=== PATIENT | male | born 1940 | race Two or more races ===

== ENCOUNTER 2018-07-28 07:47 | Day surgery (SDC) | payer OTHER, SELFPAY ==
[~2018-07-28] VITALS: Ht 180.3 cm; Wt 81.6 kg
[2018-07-28] VITALS (10 sets, daily range): BP systolic 116–139; BP diastolic 67–76
--- NOTE | 2018-07-28 08:40 | NUR ---
IV LR WAS STARTED BY FELIX NAILS RN. NO S/S OF INFILTRATION.
[2018-07-28] MEDS ORDERED: Vancomycin 1 GM in D5W 275 ML IVPB ONE (08:45)
[2018-07-28] MEDS ORDERED: ceFAZolin sod 1 GM in NS 55 ML IVPB ONE (08:45)
[2018-07-28 08:51] LABS: BASOPHILS % (AUTO) 0.5 % (0.0-2.0); EOSINOPHILS % (AUTO) 1.7 % (0.0-3.0); HEMOGLOBIN 13.7 G/DL (14.2-18.0); LYMPHOCYTES % (AUTO) 28.2 % (20.0-45.0); MEAN CORPUSCULAR VOLUME 87 FL (80-99); MONOCYTES % (AUTO) 7.3 % (1.0-10.0); NEUTROPHILS % (AUTO) 62.3 % (45.0-75.0); PLATELET COUNT 170 K/UL (150-450); RED CELL DISTRIBUTION WIDTH 14.8 % (11.6-14.8); WHITE BLOOD COUNT 5.7 K/UL (4.8-10.8)
[2018-07-28] MEDS ORDERED: Lidocaine 1% MPF 10mg/ml 5ml ONE (08:51)
[2018-07-28] MEDS ORDERED: fentaNYL 100 mcg/2 mL IV ONE (08:51)
[2018-07-28] MEDS ORDERED: Propofol 200mg/20ml IV ONE (08:51)
[2018-07-28] MEDS ORDERED: PROSCAR5 MG ORAL (08:55)
[2018-07-28] MEDS ORDERED: ATORVASTATIN CA10 MG ORAL (08:55)
[2018-07-28] MEDS ORDERED: FLOMAX0.4 MG ORAL (08:55)
[2018-07-28] MEDS ORDERED: ASPIRIN-LOW81 MG ORAL (08:55)
[2018-07-28] MEDS ORDERED: CIALIS5 MG PO (08:55)
[2018-07-28 08:57] LABS: ANION GAP 10 mmol/L (5-15); BLOOD UREA NITROGEN 21 mg/dL (7-18); CALCIUM 8.7 MG/DL (8.5-10.1); CARBON DIOXIDE 24 MMOL/L (21-32); CHLORIDE 109 MMOL/L (98-107); CREATININE 1.7 MG/DL (0.55-1.30); POTASSIUM 4.4 MMOL/L (3.5-5.1); SODIUM 142 MMOL/L (136-145)
--- NOTE | 2018-07-28 09:41 | Pre-Procedure Note/Attestation ---
Pre-Procedure Note/Attestation Complete Prior to Procedure Planned Procedure: not applicable Procedure Narrative: IPP placement Indications for Procedure Pre-Operative Diagnosis: impotence Attestation I attest that I discussed the nature of the procedure; its benefits; risks and complications; and alternatives (and the risks and benefits of such alternatives ), prior to the procedure, with the patient (or the patient's legal marketing development representative). I attest that, if there was a reasonable possibility of needing a blood transfusion, the patient (or the patient's legal marketing development representative) was given the [facility] standardized written summary, pursuant to the Olaf Dani Blood Safety Act ([place] Health and Safety Code # 1645, as amended). I attest that I re-evaluated the patient just prior to the surgery and that there has been no change in the patient's H&P, except as documented below: Barney Montana MD July 28, 2018 09:41
[2018-07-28] MEDS ORDERED: Bacitracin Oint 15gm Tube TOPIC ONE (09:51)
[2018-07-28] MEDS ORDERED: Bacitracin 50000 Units Vial ONE (09:52)
[2018-07-28] MEDS ORDERED: Vancomycin 1gm vial IVPB ONE (09:52)
[2018-07-28] MEDS ORDERED: NeoSporin Gu Irrig 1ml Amp IRRIG ONE (09:52)
[2018-07-28] MEDS ORDERED: LR 1000ml ONE (10:00)
[2018-07-28] MEDS ORDERED: NS Irrig 1000ml ONE (10:00)
[2018-07-28] MEDS ORDERED: Sterile Water Irrig 1000ml IRRIG ONE (10:00)
--- NOTE | 2018-07-28 10:41 | Anethesia Preoperative Eval ---
Anesthesia Pre-op PMH/ROS General Date of Evaluation: July 28, 2018 Time of Evaluation: 09:50 Anesthesiologist: Aleisha ASA Score: ASA 2 Mallampati Score Class I : Soft palate, uvula, fauces, pillars visible Class II: Soft palate, uvula, fauces visible Class III: Soft palate, base of uvula visible Class IV: Only hard plate visible Mallampati Classification: Class II Surgeon: Nan Diagnosis: ED Surgical Procedure: Penile prostesis placement Anesthesia History: none Family History: no anesthesia problems Allergies: Coded Allergies: No Known Allergies (Unverified , 07/28/18) Medications: see eMAR Patient NPO?: Yes Past Medical History Cardiovascular: Reports: HTN - mild Pulmonary: Denies: asthma, COPD, [place], other Gastrointestinal/Genitourinary: Reports: GERD - mild; Denies: CRI, ESRD, other Neurologic/Psychiatric: Denies: dementia, CVA, depression/anxiety, TIA, other Endocrine: Denies: DM, hypothyroidism, steroids, other HEENT: Denies: cataract (L), cataract (R), glaucoma, [place] (L[place] (R), other Hematology/Immune: Denies: anemia, DVT, bleeding disorder, other Musculoskeletal/Integumentary: Reports: OA; Denies: RA, DJD, DDD, edema, other PMH Narrative: as above PSxH Narrative: Rhinoplasty, bilateral cataracts Anesthesia Pre-op Phys. Exam Physician Exam Last Vital Signs Date Time Temp Pulse Resp B/P (MAP) Pulse Ox O2 Delivery O2 Flow Rate FiO2 07/28/18 08:47 Room Air 07/28/18 08:42 97.7 56 20 139/68 96 Constitutional: NAD Neurologic: CN 2-12 intact Cardiovascular: RRR, no M/R/G Respiratory: CTA Gastrointestinal: S/NT/ND Airway Exam Mallampati Score: Class II MO: limited Neck: stiff ROM: limited Teeth: missing Dentures: no upper, no lower Anesthesia Pre-op A/P Labs Hematology Test 07/28/18 08:35 White Blood Count 5.7 K/UL (4.8-10.8) Red Blood Count 4.80 M/UL (4.70-6.10) Hemoglobin 13.7 G/DL (14.2-18.0) L Hematocrit 42.0 % (42.0-52.0) Mean Corpuscular Volume 87 FL (80-99) Mean Corpuscular Hemoglobin 28.5 PG (27.0-31.0) Mean Corpuscular Hemoglobin Concent 32.5 G/DL (32.0-36.0) Red Cell Distribution Width 14.8 % (11.6-14.8) Platelet Count 170 K/UL (150-450) Mean Platelet Volume 5.5 FL (6.5-10.1) L Neutrophils (%) (Auto) 62.3 % (45.0-75.0) Lymphocytes (%) (Auto) 28.2 % (20.0-45.0) Monocytes (%) (Auto) 7.3 % (1.0-10.0) Eosinophils (%) (Auto) 1.7 % (0.0-3.0) Basophils (%) (Auto) 0.5 % (0.0-2.0) Chemistry Test 07/28/18 08:35 Sodium Level 142 MMOL/L (136-145) Potassium Level 4.4 MMOL/L (3.5-5.1) Chloride Level 109 MMOL/L (98-107) H Carbon Dioxide Level 24 MMOL/L (21-32) Anion Gap 10 mmol/L (5-15) Blood Urea Nitrogen 21 mg/dL (7-18) H Creatinine 1.7 MG/DL (0.55-1.30) H Estimat Glomerular Filtration Rate mL/min (>60) Glucose Level 106 MG/DL (74-106) Calcium Level 8.7 MG/DL (8.5-10.1) Studies Pre-op Studies: EKG - SR Risk Assessment & Plan Assessment: ASA 2 Plan: GA with LMA Status Change Before Surgery: No Pre-Antibiotics Drug: Vanco 1gr. Gentamycin 80 mg Given Within 1 Hr of Incision: Yes Time Given: 10:41 Edgardo Moraes MD July 28, 2018 10:41
[2018-07-28] MEDS ORDERED: LR 1000ml 1,000 ML IVLG SCH (10:42)
[2018-07-28] MEDS ORDERED: Ketorolac 30mg Inj IV PRN (10:45)
[2018-07-28] MEDS ORDERED: DiphenhydrAMINE 50mg/ml Inj IVP PRN (10:45)
[2018-07-28] MEDS ORDERED: Hydromorphone 0.5mg/0.5ml inj IVP PRN (10:45)
[2018-07-28] MEDS ORDERED: cefOXitin 1gm Inj ONE (11:08)
--- NOTE | 2018-07-28 11:48 | Immediate Post-Op Evaluation ---
Immediate Post-Op Evalulation Immediate Post-Op Evalulation Procedure: Penile prostesis placement Date of Evaluation: July 28, 2018 Time of Evaluation: 11:47 IV Fluids: 800 Blood Products: none Estimated Blood Loss: 50 Urinary Output: n/a Blood Pressure Systolic: 127 Blood Pressure Diastolic: 70 Pulse Rate: 54 Respiratory Rate: 20 O2 Sat by Pulse Oximetry: 99 Temperature (Fahrenheit): 97.8 Pain Score (1-10): 1 Nausea: No Vomiting: No Complications none Patient Status: reacts, patent, none Hydration Status: adequate Edgardo Moraes MD July 28, 2018 11:48
--- NOTE | 2018-07-28 11:58 | Brief Operative Note ---
Immediate Post Operative Note Operative Note Pre-op Diagnosis: impotence Procedure: IPP Post-op Diagnosis: same Surgeon: Garrett Montana Anesthesia: general Specimen: none Complications: none Condition: stable Fluids: 500 Estimated Blood Loss: minimal Implant(s) used?: Yes Barney Montana MD July 28, 2018 11:58
--- NOTE | 2018-07-28 14:55 | 48 Hour Post Anesthesia Eval ---
Post Anesthesia Evaluation Procedure: Penile prostesis placement Date of Evaluation: July 28, 2018 Time of Evaluation: 14:54 Blood Pressure Systolic: 130 0: 76 Pulse Rate: 72 Respiratory Rate: 20 Temperature (Fahrenheit): 97.6 O2 Sat by Pulse Oximetry: 98 Airway: patent Nausea: No Vomiting: No Pain Intensity: 3 Hydration Status: adequate Cardiopulmonary Status: stable Mental Status/LOC: patient returned to baseline Follow-up Care/Observations: n/a Post-Anesthesia Complications: none Follow-up care needed: ready to discharge Edgardo Moraes MD July 28, 2018 14:55
[2018-07-28] MEDS ORDERED: HYDROcodone/Acetamin 5/325 tab ORAL PRN (18:01)
[2018-07-28] MEDS ORDERED: D5 1/2NS 1,000 ML IV SCH (18:01)
[2018-07-28] MEDS ORDERED: HYDROmorphone 1mg/ml Carpuject SUBQ PRN (18:01)
[2018-07-28] MEDS ORDERED: Tylenol #3 tab (300mg/30mg) ORAL PRN (18:01)
--- NOTE | 2018-07-28 20:15 | Operative Note - Dictated ---
DATE OF OPERATION: 07/28/2018 PREOPERATIVE DIAGNOSIS: Organic impotence. POSTOPERATIVE DIAGNOSIS: Organic impotence. OPERATION: Implantation of two-piece penile prosthesis. OPERATED BY: Barney Montana M.D. ANESTHESIA: General. FINDINGS: Obstructed corpora. INDICATIONS FOR SURGERY: The patient had multiple different endeavors with trying to correct the erectile dysfunction including CaverStem and medications, which failed. The patient was still unable to maintain normal intercourse. Treatment options were explained to him in great length including all potential complications. He signed a consent. PROCEDURE IN DETAIL: He was brought to the operating room, placed in supine position, and prepped draped in standard fashion under general anesthesia. A penoscrotal incision was made and urethra was protected with a Rios catheter. Both corpora cavernosa was opened approximately 2 cm and dilated to 14-[place] with Hegar dilators measured to 20 cm, 2 piece 18 cm prosthesis with 2 cm rear tip adapters was inserted and corpora was closed. Wound was copiously irrigated. The pump was placed into the subdartos position. The wound was closed in 3 layers with 3-0 Vicryl sutures. Subcuticular closure for the skin. The patient tolerated the procedure well. No complications. Barney Montana M.D. DR: FREDDIE JOB#: [id number] CC:
== END 2018-07-28 14:35 | disposition home or self-care (01) ==
LOC: SUR 07:47
DX: N52.9 Male erectile dysfunction, unspecified (principal); I10 Essential (primary) hypertension; K21.9 Gastro-esophageal reflux disease without esophagitis; M19.90 Unspecified osteoarthritis, unspecified site
CPT/HCPCS: 36415; 54405; 80048; 85025; J0694; J1885; J2704; J3010; J3370; 94003; 94150

== ENCOUNTER 2018-09-08 05:46 | Observation (INO) | payer SELFPAY ==
[2018-09-08] VITALS (12 sets, daily range): BP systolic 116–133; BP diastolic 60–81
[~2018-09-08] VITALS: Ht 180.3 cm; Wt 80.3 kg
[~2018-09-08 05:46] MED LIST: ASPIRIN-LOW81 MG ORAL; ATORVASTATIN CA10 MG ORAL; CIALIS5 MG PO; FLOMAX0.4 MG ORAL; PROSCAR5 MG ORAL
[2018-09-08] MEDS ORDERED: Vancomycin 1 GM in D5W 275 ML IVPB ONE (07:00)
[2018-09-08] MEDS ORDERED: Hydrogen Peroxide 473ml Bottle TOPIC ONE (07:18)
[2018-09-08] MEDS ORDERED: NeoSporin Gu Irrig 1ml Amp IRRIG ONE ×2 (07:19→07:49)
[2018-09-08] MEDS ORDERED: Bacitracin 50000 Units Vial ONE ×2 (07:19→07:49)
--- NOTE | 2018-09-08 07:27 | Anethesia Preoperative Eval ---
Anesthesia Pre-op PMH/ROS General Date of Evaluation: Sep 08, 2018 Anesthesiologist: ronnell ASA Score: ASA 2 Mallampati Score Class I : Soft palate, uvula, fauces, pillars visible Class II: Soft palate, uvula, fauces visible Class III: Soft palate, base of uvula visible Class IV: Only hard plate visible Mallampati Classification: Class II Surgeon: Nan Diagnosis: Infected penile prosthesis Surgical Procedure: Removal and reinsertion of new penile prosthesis Anesthesia History: none Family History: no anesthesia problems Allergies: Coded Allergies: NSAIDS (NON-STEROIDAL ANTI-INFLAMMA (Verified Allergy, Unknown, 09/07/18) Medications: see eMAR Patient NPO?: Yes NPO Date: Sep 07, 2018 NPO Time: 22:00 Past Medical History Cardiovascular: Reports: other - HLD; Denies: HTN, CAD, CT, valve dz, arrhythmia Pulmonary: Denies: asthma, COPD, [place], other Gastrointestinal/Genitourinary: Reports: other - BPH; Denies: GERD, CRI, ESRD Neurologic/Psychiatric: Denies: dementia, CVA, depression/anxiety, TIA, other Endocrine: Denies: DM, hypothyroidism, steroids, other HEENT: Reports: [place] (R); Denies: cataract (L), cataract (R), glaucoma, [place] (L), other Hematology/Immune: Denies: anemia, DVT, bleeding disorder, other Musculoskeletal/Integumentary: Denies: OA, RA, DJD, DDD, edema, other PSxH Narrative: bilateral cataract, T&A, penile implant Anesthesia Pre-op Phys. Exam Physician Exam Last Vital Signs Date Time Temp Pulse Resp B/P (MAP) Pulse Ox O2 Delivery O2 Flow Rate FiO2 09/08/18 06:40 Room Air 09/08/18 06:31 97.6 78 18 133/81 98 Constitutional: NAD Cardiovascular: RRR Respiratory: CTA Airway Exam Mallampati Score: Class II MO: full ROM: full Teeth: missing, intact Anesthesia Pre-op A/P Labs see chart Studies Pre-op Studies: EKG - nsr Risk Assessment & Plan Assessment: ASA II Plan: GA Status Change Before Surgery: No Pre-Antibiotics Drug: Vanco 1g and gentamycin 80mg Given Within 1 Hr of Incision: Yes Diana Nance MD Sep 08, 2018 07:27
[2018-09-08] MEDS ORDERED: Sterile Water Irrig 1000ml IRRIG ONE (07:30)
[2018-09-08] MEDS ORDERED: LR 1000ml ONE (07:30)
[2018-09-08] MEDS ORDERED: Midazolam 2mg/2ml Inj ONE (07:34)
[2018-09-08] MEDS ORDERED: fentaNYL 100 mcg/2 mL IV ONE (07:34)
[2018-09-08] MEDS ORDERED: Propofol 200mg/20ml IV ONE (07:34)
[2018-09-08] MEDS ORDERED: Lidocaine 1% MPF 10mg/ml 5ml ONE (07:34)
[2018-09-08] MEDS ORDERED: Vancomycin 1gm vial IVPB ONE ×2 (07:36→07:51)
[2018-09-08] MEDS ORDERED: Zemuron 50mg/5ml Inj IV ONE (07:50)
[2018-09-08] MEDS ORDERED: Bacitracin Oint 15gm Tube TOPIC ONE (07:51)
[2018-09-08] MEDS ORDERED: NS Irrig 1000ml IRRIG ONE ×2 (07:55→08:36)
[2018-09-08] MEDS ORDERED: Betadine 4oz Bottle TOPIC ONE (07:55)
--- NOTE | 2018-09-08 07:56 | General Progress Note ---
Subjective Allergies: Coded Allergies: NSAIDS (NON-STEROIDAL ANTI-INFLAMMA (Verified Allergy, Unknown, 09/07/18) Objective Last 24 Hour Vital Signs Date Time Temp Pulse Resp B/P (MAP) Pulse Ox O2 Delivery O2 Flow Rate FiO2 09/08/18 06:40 Room Air 09/08/18 06:31 97.6 78 18 133/81 98 Room Air Intake and Output 09/07/18 09/08/18 19:00 07:00 Intake Total 0 ml Balance 0 ml Intake Oral 0 ml # Voids 1 Height (Feet): 5 Height (Inches): 11.00 Weight (Pounds): 177 Barney Montana MD Sep 08, 2018 07:56
--- NOTE | 2018-09-08 07:57 | Pre-Procedure Note/Attestation ---
Pre-Procedure Note/Attestation Complete Prior to Procedure Planned Procedure: not applicable Procedure Narrative: removal and replacement of IPP Indications for Procedure Pre-Operative Diagnosis: infected ipp Attestation I attest that I discussed the nature of the procedure; its benefits; risks and complications; and alternatives (and the risks and benefits of such alternatives ), prior to the procedure, with the patient (or the patient's legal customer solutions representative). I attest that, if there was a reasonable possibility of needing a blood transfusion, the patient (or the patient's legal customer solutions representative) was given the [facility] standardized written summary, pursuant to the [place] Blood Safety Act ([place] Health and Safety Code # 1645, as amended). I attest that I re-evaluated the patient just prior to the surgery and that there has been no change in the patient's H&P, except as documented below: Barney Montana MD Sep 08, 2018 07:57
[2018-09-08] MEDS ORDERED: LR 1000ml 1,000 ML IVLG SCH (08:10)
[2018-09-08] MEDS ORDERED: fentaNYL 100 mcg/2 mL IV PRN (08:15)
[2018-09-08] MEDS ORDERED: LORazepam Inj 2mg/ml 1ml IV PRN (08:15)
[2018-09-08] MEDS ORDERED: Metoclopramide 10mg/2ml Inj IVP PRN (08:15)
[2018-09-08] MEDS ORDERED: Midazolam 2mg/2ml Inj IVP PRN (08:15)
[2018-09-08] MEDS ORDERED: DiphenhydrAMINE 50mg/ml Inj IVP PRN (08:15)
[2018-09-08] MEDS ORDERED: Hydromorphone 0.5mg/0.5ml inj IVP PRN (08:15)
--- NOTE | 2018-09-08 09:21 | Brief Operative Note ---
Immediate Post Operative Note Operative Note Pre-op Diagnosis: infected ipp Procedure: removal of ipp Post-op Diagnosis: same Post-op Diagnosis: same as pre-op Surgeon: Garrett Montana Anesthesia: general Specimen: yes Complications: none Condition: stable Fluids: 500 Estimated Blood Loss: none Implant(s) used?: No Barney Montana MD Sep 08, 2018 09:21
--- NOTE | 2018-09-08 09:50 | Immediate Post-Op Evaluation ---
Immediate Post-Op Evalulation Immediate Post-Op Evalulation Procedure: Removal of infected penile prosthesis Date of Evaluation: Sep 08, 2018 Time of Evaluation: 09:23 IV Fluids: 800 Blood Products: 0 Estimated Blood Loss: 25 Urinary Output: 0 Blood Pressure Systolic: 129 Blood Pressure Diastolic: 74 Pulse Rate: 61 Respiratory Rate: 16 O2 Sat by Pulse Oximetry: 100 Temperature (Fahrenheit): 97.1 Pain Score (1-10): 0 Nausea: No Vomiting: No Complications 0 Patient Status: awake, reacts, patent, none Hydration Status: adequate Drug: Vanco and gentamycin Given Within 1 Hr of Incision: Yes Diana Nance MD Sep 08, 2018 09:50
[2018-09-08 10:27] LABS: BASOPHILS % (AUTO) 0.6 % (0.0-2.0); HEMOGLOBIN 11.1 G/DL (14.2-18.0); LYMPHOCYTES % (AUTO) 21.4 % (20.0-45.0); MEAN CORPUSCULAR VOLUME 86 FL (80-99); MONOCYTES % (AUTO) 5.5 % (1.0-10.0); NEUTROPHILS % (AUTO) 70.5 % (45.0-75.0); PLATELET COUNT 205 K/UL (150-450); RED BLOOD COUNT 3.82 M/UL (4.70-6.10); RED CELL DISTRIBUTION WIDTH 15.1 % (11.6-14.8); WHITE BLOOD COUNT 8.3 K/UL (4.8-10.8)
[2018-09-08 10:31] LABS: ANION GAP 8 mmol/L (5-15); BLOOD UREA NITROGEN 20 mg/dL (7-18); CALCIUM 8.7 MG/DL (8.5-10.1); CARBON DIOXIDE 26 MMOL/L (21-32); CHLORIDE 110 MMOL/L (98-107); CREATININE 1.4 MG/DL (0.55-1.30); POTASSIUM 4.7 MMOL/L (3.5-5.1); SODIUM 144 MMOL/L (136-145)
--- NOTE | 2018-09-08 10:45 | NUR ---
NURSE NOTES: received patient from LASHANDA Rubalcava at 1045 alert awake with out distress, son at bedside with all belongings. surgical site with serosanguineous stain. FC intact draining pale yellow clear urine, patient reported pain 5/10. Will continue to monitor.
--- NOTE | 2018-09-08 12:15 | NUR ---
NURSE NOTES: Patient is in bed awake and able to verbalize needs. Stable. Complains of pain, will administer pain medication as ordered. Surgical dressing soiled. Patient encouraged to use call light for assistance, verbalized understanding. Patient is in bed in locked and lowest position with call light within reach. Will continue to monitor.
--- NOTE | 2018-09-08 12:15 | NUR ---
HAND-OFF: Report given to LASHANDA Oquendo patient endorsed stale condition.
[2018-09-08] MEDS: D5 1/2NS w/KCl 20mEq 1,000 ML IV SCH ×2 (12:43→22:30)
[2018-09-08] MEDS: HYDROmorphone 1mg/ml Carpuject IVP PRN ×2 (12:44→18:20)
[2018-09-08] MEDS: HYDROcodone/Acetamin 5/325 tab ORAL PRN (15:21)
[2018-09-08] MEDS: Docusate 100mg cap ORAL SCH (18:20)
--- NOTE | 2018-09-08 19:30 | NUR ---
NURSE NOTES: Report taken from LASHANDA Javed. Patient is here for observation from post-op procedure, began at 1045 09/08/18. Patient is awake and in bed A&Ox4. No signs of distress on room air. IV site c/d/i and running D51/2+20K at 100mls/hr. Open for antibiotics as well. Surgical site c/d/i some minor staining but no heavy fluid or blood observation. Skin is intact. Rios c/d/i and draining yellow urine. Bed in lowest position, call light within reach.
--- NOTE | 2018-09-08 19:30 | NUR ---
HAND-OFF: Report given to Ramsey PYLE. patient is stable.
[2018-09-08] MEDS ORDERED: Gentamicin inj 80 MG in NS 110 ML IVPB ONE (20:00)
[2018-09-08] MEDS ORDERED: Gentamicin 80mg/100ml Premix IVPB ONE (20:00)
[2018-09-08] MEDS ORDERED: Vancomycin 1gm/D5W 275ml IVPB ONE ×2 (21:00)
[2018-09-09] MEDS: HYDROmorphone 1mg/ml Carpuject IVP PRN ×2 (00:06→05:01)
--- NOTE | 2018-09-09 07:40 | NUR ---
HAND-OFF: Report given to LASHANDA Altman. patient awake and VS stable.
--- NOTE | 2018-09-09 08:18 | NUR ---
NURSE NOTES: Pt is up and awake ate breakfast well. Bandage has presence of blood remains covered by tegaderm . Scrotums are slightly swollen, ice pack offered and refused . Pt does not have discharge instructions, Dr phoned for discharge orders , follow up appt, and discharge instructions.
--- NOTE | 2018-09-09 08:22 | NUR ---
NURSE NOTES: Dr. Montana called for discharge order and discharge instruction at 0822.
[2018-09-09] MEDS: Docusate 100mg cap ORAL SCH (08:38)
[2018-09-09] MEDS: HYDROcodone/Acetamin 5/325 tab ORAL PRN (08:38)
[2018-09-09] MEDS ORDERED: Tamsulosin 0.4mg cap ORAL SCH (09:00)
--- NOTE | 2018-09-09 09:20 | NUR ---
NURSE NOTES: Dr Montana phoned gave orders for discharge . D/C chang catheter, change dressing, support scrotums with Kerlex. Pt is allowed to shower. Hr Payroll Coordinator inquired about activity Per Dr Al no sex, at this time. Follow made with pt per Dr Montana for next week. Informed that scrotums are slightly swollen ice pack offered and refused. informed of antibiotic regime provided yesterday.
--- NOTE | 2018-09-09 10:30 | NUR ---
NURSE NOTES: Pt dressing changed no drainage to incision site noted moderate serosanguineous amount . Pt rigid during dressing change. Rios d/c without complication. Discharge instructions provided. Informed not have sex until further notice from MD. Pt is able to shower. Verbalized understanding. Refused support under penile area , stated the mere touch causes pain, per pt he does not wear underwear. Per pt the kerlex would not be comfortable
--- NOTE | 2018-09-09 10:30 | NUR ---
Reassessment for [place] did not save. verbalized pain 4 1/10 scale. Continues verbalize tenderness during position change, [place] effective. 1 1/10 scale
[2018-09-09] MEDS ORDERED: Tubing IV Secondary IV ONE (12:04)
[2018-09-09 15:40] VITALS: BP 125/64
--- NOTE | 2018-09-09 15:40 | 48 Hour Post Anesthesia Eval ---
Post Anesthesia Evaluation Procedure: Removal of infected penile prosthesis Date of Evaluation: Sep 09, 2018 Time of Evaluation: 15:39 Blood Pressure Systolic: 125 0: 64 Pulse Rate: 76 Respiratory Rate: 20 Temperature (Fahrenheit): 97.5 O2 Sat by Pulse Oximetry: 98 Airway: patent Nausea: No Vomiting: No Pain Intensity: 1 Hydration Status: adequate Cardiopulmonary Status: stable Mental Status/LOC: patient returned to baseline Follow-up Care/Observations: n/a Post-Anesthesia Complications: none Follow-up care needed: ready to discharge Edgardo Moraes MD Sep 09, 2018 15:40
--- NOTE | 2018-09-09 15:50 | NUR ---
CASE MANAGEMENT: INITIAL REVIEW 78 YO M [facility] SI:INFECTED PENILE PROSTHESIS. T 97.6 HR 78 RR 18 B/P 133/81 SATS 98% ON RA CL 110 BUN 20 CR 1.4 GLU 113 IS:IVF @ 100 ML/HR LIPITOR PO QHS PROSCAR PO QD FLOMAX PO QD PATIENT ADMITTED UNDER OBS 09/08/2018 @ 0938 PLAN OF CARE: Pre-op Diagnosis: infected ipp Procedure: removal of ipp Post-op Diagnosis: same Post-op Diagnosis: same as pre-op 09/09/2018>> PATIENT DC Addendum: 09/10/18 at 1119 by Dori Callaway CM INTERQUAL MET
--- NOTE | 2018-09-13 18:45 | Operative Note - Dictated ---
DATE OF OPERATION: 09/08/2018 PREOPERATIVE DIAGNOSIS: Infected penile prosthesis. POSTOPERATIVE DIAGNOSIS: Infected penile prosthesis. OPERATION: Removal of the old penile prosthesis, irrigation with antibiotics, closure of the wound. OPERATED BY: Barney Montana M.D. ANESTHESIA: General. FINDINGS: Infected penile prosthesis. INDICATION FOR SURGERY: The patient underwent two-piece penile prosthesis placement, which was uneventful. However, over the course of two to three weeks, he developed erythema, swelling, and some discharge from the wound and he suspected that this prosthesis was infected. He was presented with the option of removal versus removal and replacement and signed a consent. PROCEDURE IN DETAIL: He was brought to the operating room, placed in supine position. Prepped and draped in standard fashion. Under general anesthesia, a penoscrotal incision was reopened. Using sharp and blunt dissection, the electrocautery and Metzenbaum scissors, access was gained into the scrotal pump, which was dissected free and dissection was carried to both corpora cavernosa and that was reopened at the area of the incision and after reopening of the corpora, the old were removed. Using the protocol, wound was irrigated with hydrogen peroxide, followed by Betadine and then antibiotic solutions. Due to this magnitude of infection, decision that I made was not to replace the prosthesis at this time. opened. Wound was irrigated and closed in three layers and nylon for the skin. The patient tolerated the procedure well. Estimated blood loss approximately 10 mL. He was transferred to recovery in stable condition. Sponge count and instrument count was correct. Barney Montana M.D. DR: MONY JOB#: [id number] CC:
--- NOTE | 2018-09-16 11:41 | Discharge Summary ---
Discharge Summary Discharge Summary _ DATE OF ADMISSION: 09/08/2018 DATE OF DISCHARGE: 09/09/2018 DISCHARGED BY: Dr. Barney Montana CONSULT: Dr. Lynette Samuel BRIEF HOSPITAL COURSE: Patient is an 78-year-old male, underwent 2 piece penile prosthesis placement which was uneventful. However, over the course of 2 to 3 weeks, he developed erythema, swelling and discharge from the wound. He was diagnosed with infected penile prosthesis. Patient was admitted on 09/08/2018 and underwent removal of old penile prostheses, irrigation with antibiotics and closure of wound. He tolerated procedure well. There were no immediate complications. Patient was stable postop. Post-operatively, the was admitted under observation for post-op care. IV hydration was continued. The was given SCDs for DVT prophylaxis and was encouraged use of incentive spirometer. Pain management was provided. Diet was advanced. Rios catheter was discontinued. Patient was advised no sexual activity until outpatient follow up. Patient was discharged home. POSTOPERATIVE DIAGNOSIS: Infected penile prosthesis. OPERATION: Removal of the old penile prosthesis, irrigation with antibiotics, closure of the wound. DISCHARGE DISPOSITION: Patient was discharged home. DISCHARGE MEDICATIONS: Refer to medication list. DISCHARGE INSTRUCTIONS: Postop instructions given. Follow up in a week. I have been assigned to complete a discharge summary on this account, I was not involved with the patient's management.--AYDE Ramos Jacqueline Robles NP Sep 16, 2018 11:41
== END 2018-09-09 12:05 | disposition home or self-care (01) ==
LOC: SUR 05:46 → EDSTATUS 07:30 → UNDOADMOB 10:57 → 3E 10:57 → UNDODISOB 09-09 12:05
DX: T83.61XA Infection and inflammatory reaction due to implanted penile prosthesis, initial encounter (principal); X58.XXXA Exposure to other specified factors, initial encounter; Y92.9 Unspecified place or not applicable; Z88.6 Allergy status to analgesic agent; E78.5 Hyperlipidemia, unspecified
CPT/HCPCS: 36415; 51702; 54406; 80048; 85025; 87070; 87075; 87081; 87181; 87205; J1170; J1580; J2250; J2704; J3010; J3370; 94003; 94150; A4246